=== PATIENT | female | born 1950 | race Caucasian/White ===

== ENCOUNTER 2021-02-10 16:57 | Inpatient (IN) | payer MEDICARE, OTHER ==
[~2021-02-10] VITALS: Ht 172.7 cm; Wt 91.2 kg
[2021-02-10 17:30] VITALS: BP 161/85
[2021-02-10] MEDS ORDERED: BLOOD SUGAR DIAGNOSTIC 1 EACH STRIP IN ONE (17:30)
[2021-02-10] MEDS ORDERED: MAG HYDROX/AL HYDROX/SIMETH 30 ML UDC PO PRN (17:30)
[2021-02-10] MEDS ORDERED: MAGNESIUM HYDROXIDE 30 ML UDC PO PRN (17:30)
--- NOTE | 2021-02-10 17:53 | NUR ---
GPS/RN RECEIVED PT DIRECT ADMIT FROM [facility] ON 515 HOLD FOR DTO( THREATEN TO [employer] EMPL[employer]YE[employer] AT THE [employer]). P T IS AMBULATORY, NO ACUTE DISTRESS NOTED. VSS. PROPERTY CHECKED FOR CONTRABAND. ADMITTING ORDERS FROM DR PARIKH RECEIVED AND CARRIED OUT. DR MARIE MADE AWARE OF ADMISSION.
[2021-02-10] MEDS ORDERED: DEXTROSE 50%-WATER 50 ML DISP.SYRIN IV PRN (18:00)
[2021-02-10] MEDS ORDERED: GLIM4TAB37 MT (18:15)
[2021-02-10] MEDS ORDERED: METO-357 MT (18:15)
[2021-02-10] MEDS ORDERED: LOSA50TA39 MT (18:15)
[2021-02-10] MEDS ORDERED: QUET300T2 (18:15)
[2021-02-10] MEDS ORDERED: DIVA500T54 MT (18:15)
--- NOTE | 2021-02-10 18:50 | NUR ---
FEMALE PT. ALERT AND ORIENTED X2-3 ADM. TO [facility],AT NURSE'S STATION UNIQUE.REFUSES INSULIN,STATES SHE CANNOT TAKE WITH HER CURRENT MEDS.FOOD ORDERED.
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
[2021-02-10 20:39] VITALS: BP 153/80
--- NOTE | 2021-02-10 21:30 | NUR ---
GPS RN NOTE MRSA SPECIMEN COLLECTED AND SENT TO LAB, ALSO ADMITTING BS 237, 6 UNITS REGULAR INSULIN SQ GIVEN ALSO GIVEN HS SNACKS. PT IS MED COMPLIANT.
[2021-02-10] MEDS: TEMAZEPAM 7.5 MG CAPSULE PO PRN (21:40)
--- NOTE | 2021-02-10 21:40 | NUR ---
GPS TRENT NOTE PT C/O INSOMNIA, RESTORIL 15 MG PO GIVEN. CONTINUE TO MONITOR. Addendum: 02/11/21 at 0350 by VALENTIN DOBBS RN ALSO GIVEN MOM 30 ML DUE TO C/O CONSTIPATION.
[2021-02-10] MEDS: BLOOD SUGAR DIAGNOSTIC 1 EACH STRIP VI SCH (21:42)
[2021-02-10] MEDS: INSULIN REGULAR, HUMAN 100 UNIT/ML 3 ML VIAL SQ PRN (21:44)
--- NOTE | 2021-02-10 22:40 | NUR ---
GPS RN NOTE PT FALL ASLEEP.
[2021-02-11] MEDS: ACETAMINOPHEN 325 MG TABLET PO PRN (03:38)
--- NOTE | 2021-02-11 03:40 | NUR ---
GPS RN NOTE PT WOKE UP AND C/O HEADACHE TYLENOL 650 MG PO GIVEN. ALSO STATES "I HAVE NO MORE CONSTIPATION".
[2021-02-11 07:39] LABS: THYROID STIMULATING HORMONE 2.332 uIU/mL (0.358-3.74)
[2021-02-11 08:00] VITALS: BP 154/79
[2021-02-11 08:32] LABS: ALBUMIN 3.1 g/dL (3.4-5.0); BILIRUBIN,TOTAL 0.3 mg/dL (0.2-1.0); CALCIUM, SERUM 8.4 mg/dL (8.5-10.1); CREATININE 0.8 mg/dL (0.6-1.3); TOTAL PROTEIN, SERUM 7.1 g/dL (6.4-8.2)
[2021-02-11] MEDS: INSULIN REGULAR, HUMAN 100 UNIT/ML 3 ML VIAL SQ PRN (08:38)
[2021-02-11] MEDS: BLOOD SUGAR DIAGNOSTIC 1 EACH STRIP VI SCH ×4 (08:41→21:38)
[2021-02-11] MEDS: GLIMEPIRIDE 4 MG TABLET PO SCH (08:42)
[2021-02-11] MEDS: METOPROLOL SUCCINATE 50 MG TAB.SR.24H PO SCH (08:42)
[2021-02-11] MEDS: LOSARTAN POTASSIUM 50 MG TABLET PO SCH (08:43)
[2021-02-11] MEDS: QUETIAPINE FUMARATE 100 MG TABLET PO SCH ×2 (11:43→17:47)
[2021-02-11] MEDS: DIVALPROEX SODIUM 500 MG TABLET.DR PO SCH ×3 (11:43→17:00)
--- NOTE | 2021-02-11 11:51 | NUR ---
GPS/RN IT TOOK MULTIPLE ATTEMPTS TODAY IN AM TO MEDICATE PT WITH INSULIN AND PO MEDS WITH HELP OF CHARGE NURSE CHERI NEWMAN AND JAMES NEWMAN D/T PT BEING PARANOID AND DISORGANIZED. PT REFUSED ACCUCHECK FOR 1200 OFFERED X3.
[2021-02-11] MEDS ORDERED: DIVALPROEX SODIUM 500 MG TABLET.DR PO SCH (13:00)
[2021-02-11 16:00] VITALS: BP 129/77
--- NOTE | 2021-02-11 17:52 | NUR ---
GPD/RN PT REFUSED ACCUCHECK AND REFUSED TO TAKE DEPAKOTE. TOOK SEROQUEL SCHEDULED FOR 1700
[2021-02-11 20:00] VITALS: BP 123/80
--- NOTE | 2021-02-11 21:39 | NUR ---
GPS RN NOTES: BS 144MG/DL. PATIENT REFUSED 2U REGULAR INSULIN PER SLIDING SCALE ORDER. WILL CONTINUE TO MONITOR.
[2021-02-11] MEDS: TEMAZEPAM 7.5 MG CAPSULE PO PRN (22:58)
--- NOTE | 2021-02-11 23:00 | NUR ---
GPS RN NOTES: PATIENT REQUESTED SLEEP MEDICATION D/T INSOMNIA. RESTORIL 15MG GIVEN PO AT 2258. WILL CONTINUE TO MONITOR.
[2021-02-12 08:00] VITALS: BP 156/92
[2021-02-12] MEDS: BLOOD SUGAR DIAGNOSTIC 1 EACH STRIP VI SCH ×4 (08:35→21:31)
[2021-02-12] MEDS: GLIMEPIRIDE 4 MG TABLET PO SCH (08:37)
[2021-02-12] MEDS: METOPROLOL SUCCINATE 50 MG TAB.SR.24H PO SCH (08:38)
[2021-02-12] MEDS: QUETIAPINE FUMARATE 100 MG TABLET PO SCH ×2 (08:38→16:12)
[2021-02-12] MEDS: LOSARTAN POTASSIUM 50 MG TABLET PO SCH (08:38)
[2021-02-12] MEDS: clonazePAM 0.5 MG TABLET PO PRN (08:39)
[2021-02-12] MEDS: DIVALPROEX SODIUM 500 MG TABLET.DR PO SCH ×3 (08:39→16:12)
--- NOTE | 2021-02-12 08:42 | NUR ---
RN NOTES BS 307 MG/DL. JUST HAD BREAKFAST.PATIENT REFUSED INSULIN AND DEPAKOTE. STATED "IT DESTROYS YOUR LIVER"
--- NOTE | 2021-02-12 12:12 | NUR ---
RN NOTES BS 223 MG/DL. PATIENT REFUSED INSULIN AND DEPAKOTE. DESPITE EXPLAINING RISKS AND BENEFITS
--- NOTE | 2021-02-12 15:17 | NUR ---
AMRITA Initial Discharge Plan: Patient currently resides with daughter Dolores ([phone]) and stated she would want to go to a SNF. SW will find pt a SNF. SW contacted pt's daughter Dolores ([phone]) to discuss treatment and discharge plan and stated it is up to her mother if she wants to go to a SNF. SW will coordinate with discharge and find appropriate placement.
--- NOTE | 2021-02-12 15:17 | NUR ---
SW Family Contact: SW contacted pt's daughter Dolores ([phone]) to discuss treatment and discharge plan and stated it is up to her mother if she wants to go to a SNF. S
[2021-02-12 16:00] VITALS: BP_SYST 132; BP_SYST 143; BP_DIAS 72; BP_DIAS 75
--- NOTE | 2021-02-12 16:12 | NUR ---
RN NOTE: MEDICATION REFUSAL PT REFUSED 1700 DEPAKOTE. STATES, " I DON'T TAKE DEPAKOTE". ATTEMPTED TO EDUCATE PT RE IMPORTANCE OF MEDICATION COMPLIANCE. PT CONT'D TO REFUSE X 3. WILL CONT TO MONITOR
[2021-02-12 19:55] VITALS: BP 132/61
--- NOTE | 2021-02-12 20:05 | NUR ---
NURSES NOTES: RECEIVED PATIENT IN HER ROOM AWAKE, NO SIGNS OF ANY DISTRESS, RESPIRATION UNLABORED. WILL MONITOR FOR SAFETY AND BEHAVIOR.
[2021-02-12] MEDS: SIMVASTATIN 10 MG TABLET PO SCH (21:03)
[2021-02-12] MEDS: *INSULIN REGULAR(HUMULIN R)HUM 100 UNIT/ML VIAL SQ PRN (21:33)
[2021-02-12] MEDS: TEMAZEPAM 7.5 MG CAPSULE PO PRN (21:34)
[2021-02-13 07:30] LABS: BASOPHILS % (AUTO) 0.3 % (0.0-2.0); EOSINOPHILS % (AUTO) 4.1 % (0.0-6.0); HEMATOCRIT 38 % (33-45); HEMOGLOBIN 12.6 g/dL (11.5-14.8); LYMPHOCYTES # (AUTO) 2.3 K/uL (0.8-4.8); LYMPHOCYTES % (AUTO) 26.2 % (20.0-44.0); MEAN CORPUSCULAR HGB CONC 33 g/dl (31.0-36.0); MEAN CORPUSCULAR VOLUME 87 fL (82-100); MONOCYTES # (AUTO) 0.6 K/uL (0.1-1.30); MONOCYTES % (AUTO) 6.7 % (2.0-12.0); NEUTROPHILS # (AUTO) 5.5 K/uL (1.8-8.9); NEUTROPHILS % (AUTO) 62.7 % (43.0-81.0); PLATELET COUNT (AUTO) 348 K/uL (150-450); WHITE BLOOD COUNT (AUTO) 8.7 K/uL (4.3-11.0)
[2021-02-13] MEDS: BLOOD SUGAR DIAGNOSTIC 1 EACH STRIP VI SCH ×4 (07:31→21:26)
[2021-02-13] MEDS: INSULIN REGULAR, HUMAN 100 UNIT/ML 3 ML VIAL SQ PRN ×2 (07:38→11:15)
[2021-02-13 07:57] LABS: ALBUMIN 3.3 g/dL (3.4-5.0); BILIRUBIN,DIRECT 0.1 mg/dL (0.0-0.2); BILIRUBIN,TOTAL 0.4 mg/dL (0.2-1.0); CALCIUM, SERUM 8.9 mg/dL (8.5-10.1); CREATININE 0.8 mg/dL (0.6-1.3); MAGNESIUM 1.9 mg/dL (1.8-2.4); PHOSPHORUS 3.7 mg/dL (2.5-4.9); POTASSIUM 3.9 mmol/L (3.5-5.1); TOTAL PROTEIN, SERUM 7.4 g/dL (6.4-8.2)
[2021-02-13 08:00] VITALS: BP 160/87
[2021-02-13] MEDS: DIVALPROEX SODIUM 500 MG TABLET.DR PO SCH ×3 (09:09→16:15)
[2021-02-13] MEDS: LOSARTAN POTASSIUM 50 MG TABLET PO SCH (09:09)
[2021-02-13] MEDS: GLIMEPIRIDE 4 MG TABLET PO SCH (09:10)
[2021-02-13] MEDS: QUETIAPINE FUMARATE 100 MG TABLET PO SCH ×2 (09:10→16:15)
[2021-02-13] MEDS: METOPROLOL SUCCINATE 50 MG TAB.SR.24H PO SCH (09:10)
--- NOTE | 2021-02-13 09:41 | NUR ---
SNF Referral: AMRITA faxed clinicals to Sree booth from [facility] ([phone]) for placement option. AMRITA faxed progress notes, H & P, and medication list.
--- NOTE | 2021-02-13 09:42 | NUR ---
SW Note: SW discussed placement option with pt and she stated she would want a SNF near [place]. SW mentioned SNF near [place] called [facility] and pt was agreeable with this option. SW educated that the facility would have to review her packet.
[2021-02-13] MEDS: LINAGLIPTIN 5 MG TABLET PO SCH (11:07)
[2021-02-13 16:00] VITALS: BP 133/75
[2021-02-13 20:00] VITALS: BP 126/64
[2021-02-13] MEDS: SIMVASTATIN 10 MG TABLET PO SCH (21:26)
[2021-02-13] MEDS: *INSULIN REGULAR(HUMULIN R)HUM 100 UNIT/ML VIAL SQ PRN (22:07)
[2021-02-14] MEDS: TEMAZEPAM 7.5 MG CAPSULE PO PRN ×2 (00:25→22:06)
--- NOTE | 2021-02-14 00:25 | NUR ---
RN NOTES: INSOMNIA PT. UNABLE TO SLEEP , RESTORIL 15 MG PO PRN GIVEN, WILL CONTINUE TO MONITOR.
[2021-02-14] MEDS: BLOOD SUGAR DIAGNOSTIC 1 EACH STRIP VI SCH ×4 (07:10→22:09)
[2021-02-14 08:00] VITALS: BP 154/82
[2021-02-14] MEDS: GLIMEPIRIDE 4 MG TABLET PO SCH (08:49)
[2021-02-14] MEDS: QUETIAPINE FUMARATE 100 MG TABLET PO SCH ×2 (08:49→16:34)
[2021-02-14] MEDS: LINAGLIPTIN 5 MG TABLET PO SCH (08:49)
[2021-02-14] MEDS: DIVALPROEX SODIUM 500 MG TABLET.DR PO SCH ×3 (08:49→16:34)
[2021-02-14] MEDS: LOSARTAN POTASSIUM 50 MG TABLET PO SCH (08:50)
[2021-02-14] MEDS: METOPROLOL SUCCINATE 50 MG TAB.SR.24H PO SCH (08:50)
[2021-02-14] MEDS: INSULIN REGULAR, HUMAN 100 UNIT/ML 3 ML VIAL SQ PRN ×2 (09:16→11:22)
--- NOTE | 2021-02-14 10:10 | NUR ---
SNF Contact: SW received a call from Sree booth from [facility] ([phone]) who stated that pt is accepted.
--- NOTE | 2021-02-14 11:12 | NUR ---
WOUND CARE CONSULT: HEALED AREA NOTED TO RT ANTERIOR LOWER LEG AND PEELING SKIN TO FEET WITH DISCOLORATION AND RT HEEL DRY WOUND WITH TENDERNESS, PRESENT ON ADMISSION. DPM CONSULT CALLED TO DR HAMPAPUR. STAUFFER IN AGREEMENT WITH PLAN OF CARE.
--- NOTE | 2021-02-14 11:35 | NUR ---
RN-CO: BLOOD SUGAR BEFORE LUNCH IS 200, 3 UNITS OF REGULAR INSULIN GIVEN.
[2021-02-14] MEDS: clonazePAM 0.5 MG TABLET PO PRN (14:30)
--- NOTE | 2021-02-14 14:30 | NUR ---
RN-CO: KLONOPIN 0.5 MG PO GIVEN FOR AGITATION.
[2021-02-14 16:00] VITALS: BP 127/76
--- NOTE | 2021-02-14 16:43 | NUR ---
RN-CO: BS 124 BEFORE DINNER, NO INSULIN COVERAGE.
--- NOTE | 2021-02-14 19:30 | NUR ---
GPS RN NOTE, RECEIVED PATIENT AWAKE AND IN BED, NO S/S OR COMPLAINTS OF PAIN AT THIS TIME. PATIENT IS DISPLAYING NO S/S OF APPARENT DISTRESS AT THIS TIME. PATIENT BREATHING IS UNLABORED WITH EQUAL RISE AND FALL OF THE CHEST. PATIENT IS ALERT AND ORIENTED X 3 ON ROOM AIR WITH A SPO2 98%. PATIENT IS COMPLIANT WITH MEDICATIONS, ANXIOUS AT TIMES, ARGUMENTATIVE, NEEDS REDIRECTION, AND IS COOPERATIVE. PATIENT DENIES SUICIDAL AND HOMICIDAL IDEATIONS AT TIME. PATIENT EDUCATED ON THE USE OF THE CALL ALVARENGA. PATIENT BED SIDE RAILS UP X 2 FOR SAFETY. PATIENT BED IS LOCKED, LOW, WITH BED ALARM ON. WILL CONTINUE TO MONITOR THIS PATIENT Q15 MINUTES WITH THE HELP OF STAFF TO MAINTAIN SAFETY.
[2021-02-14 20:00] VITALS: BP 119/65
[2021-02-14] MEDS: SIMVASTATIN 10 MG TABLET PO SCH (21:49)
--- NOTE | 2021-02-14 22:07 | NUR ---
GPS RN NOTE, PATIENT HAS A COMPLAINT OF NOT BEING ABLE TO SLEEP AND IS REQUESTING RESTORIL AT THIS TIME. PATIENT VITAL SIGNS ARE STABLE. GAVE RESTORIL 15MG PO HS PRN ORDERED. WILL REASSESS FOR INSOMNIA AND I WILL CONTINUE TO MONITOR THIS PATIENT.
[2021-02-15 08:00] VITALS: BP 123/69
[2021-02-15] MEDS: BLOOD SUGAR DIAGNOSTIC 1 EACH STRIP VI SCH ×4 (08:02→21:29)
[2021-02-15] MEDS: METOPROLOL SUCCINATE 50 MG TAB.SR.24H PO SCH (09:21)
[2021-02-15] MEDS: LINAGLIPTIN 5 MG TABLET PO SCH (09:21)
[2021-02-15] MEDS: QUETIAPINE FUMARATE 100 MG TABLET PO SCH ×2 (09:21→16:34)
[2021-02-15] MEDS: DIVALPROEX SODIUM 500 MG TABLET.DR PO SCH ×4 (09:21→16:34)
[2021-02-15] MEDS: GLIMEPIRIDE 4 MG TABLET PO SCH (09:21)
[2021-02-15] MEDS: LOSARTAN POTASSIUM 50 MG TABLET PO SCH (09:22)
--- NOTE | 2021-02-15 09:30 | NUR ---
RN-NOTES PT. BS WAS 164 MG/DL, REFUSED COVERAGE OF R INSULIN OF 3 UNITS DESPITE EXPLANATIONS RISK AND BENEFITS AND ENCOURAGEMENT. STATED" IT'S NOT THAT HIGH AND I'M NOT IN INSULIN ANYMORE" OFFERED X3 STILL REFUSED.
--- NOTE | 2021-02-15 10:52 | NUR ---
Court Hearing: Patient's court hearing for 8730 was today and it was upheld for GD.
[2021-02-15 16:00] VITALS: BP 133/72
--- NOTE | 2021-02-15 17:06 | NUR ---
RN-NOTES PT. BS WAS 194 MG/DL, REFUSED COVERAGE OF R INSULIN OF 3 UNITS DESPITE EXPLANATIONS RISK AND BENEFITS AND ENCOURAGEMENT. STATED" NO INSULIN". OFFERED X3 STILL REFUSED.NO COMPLAIN OF ANY DISCOMFORT AT THIS TIME.
[2021-02-15 20:00] VITALS: BP 123/54
[2021-02-15] MEDS: SIMVASTATIN 10 MG TABLET PO SCH (21:06)
[2021-02-15] MEDS: TEMAZEPAM 7.5 MG CAPSULE PO PRN (21:06)
--- NOTE | 2021-02-15 21:06 | NUR ---
GPS-RN NOTES: INSOMNIA PATIENT C/O INABILITY TO SLEEP. PRN RESTORIL 15MG PO GIVEN. WILL CONTINUE TO MONITOR.
--- NOTE | 2021-02-15 21:29 | NUR ---
GPS RN-NOTES: PATIENT BLOOD SUGAR WAS 137MG/DL WITH 2 UNITS OF REGULAR INSULIN COVERAGE BUT PATIENT REFUSED. DESPITE OF EDUCATION PROVIDED PATIENT CONTINUED TO REFUSE X3. PATIENT STATED "NO INSULIN". WILL CONTINUE TO MONITOR.
[2021-02-15] MEDS: *INSULIN REGULAR(HUMULIN R)HUM 100 UNIT/ML VIAL SQ PRN (21:30)
--- NOTE | 2021-02-16 07:30 | NUR ---
RN-NOTES PT. BS WAS 163 MG/DL, REFUSED COVERAGE OF R INSULIN OF 3 UNITS DESPITE EXPLANATIONS RISK AND BENEFITS AND ENCOURAGEMENT. STATED" IT'S NOT HIGH AND I'M NOT IN INSULIN ANYMORE" OFFERED X3 .
[2021-02-16] MEDS: BLOOD SUGAR DIAGNOSTIC 1 EACH STRIP VI SCH ×4 (07:43→21:16)
[2021-02-16 08:00] VITALS: BP 155/87
[2021-02-16] MEDS: DIVALPROEX SODIUM 500 MG TABLET.DR PO SCH ×3 (08:30→17:12)
[2021-02-16] MEDS: LINAGLIPTIN 5 MG TABLET PO SCH (08:30)
[2021-02-16] MEDS: LOSARTAN POTASSIUM 50 MG TABLET PO SCH (08:30)
[2021-02-16] MEDS: METOPROLOL SUCCINATE 50 MG TAB.SR.24H PO SCH (08:30)
[2021-02-16] MEDS: QUETIAPINE FUMARATE 100 MG TABLET PO SCH ×2 (08:30→17:12)
[2021-02-16] MEDS: GLIMEPIRIDE 4 MG TABLET PO SCH (08:30)
--- NOTE | 2021-02-16 12:30 | NUR ---
RN-NOTES PT. BS WAS 155 MG/DL, REFUSED COVERAGE OF R INSULIN OF 2 UNITS DESPITE EXPLANATIONS RISK AND BENEFITS . OFFERED X3 .
--- NOTE | 2021-02-16 13:50 | NUR ---
Individual Therapy: SW met with patient to conduct brief therapy on patient's presenting problem for disorganized thought content. Patient appears paranoid and delusional. Patient is fixated on her daughter and states that her daughter is depressed. SW actively listened and provided support.
[2021-02-16 16:00] VITALS: BP 110/65
--- NOTE | 2021-02-16 17:45 | NUR ---
RN-NOTES PT. BS WAS 171 MG/DL, REFUSED COVERAGE OF R INSULIN OF 3 UNITS . OFFERED X3
[2021-02-16 20:06] VITALS: BP 126/62
[2021-02-16] MEDS: *INSULIN REGULAR(HUMULIN R)HUM 100 UNIT/ML VIAL SQ PRN (21:16)
[2021-02-16] MEDS: SIMVASTATIN 10 MG TABLET PO SCH (21:18)
[2021-02-16] MEDS: clonazePAM 0.5 MG TABLET PO PRN (21:41)
--- NOTE | 2021-02-16 21:43 | NUR ---
RN NOTES: ANXIETY PT. NOTED VERY ANXIOUS ,PACING IN HALLWAY , PARANOID HYPERVERBAL , NEEDY DEMENDING, NON REDICTABLE, KLNOPIN 0.5 MG PO PRN GIVEN , WILL CONTINUE TO MONITOR.
[2021-02-17] MEDS: clonazePAM 0.5 MG TABLET PO PRN ×2 (02:27→20:31)
--- NOTE | 2021-02-17 02:27 | NUR ---
RN NOTES: ANXIETY PT. C/O VERY ANXIOUS ,PACING IN HALLWAY , PARANOID HYPERVERBAL , NEEDY DEMENDING, NON REDICTABLE, KLNOPIN 0.5 MG PO PRN GIVEN , WILL CONTINUE TO MONITOR.
--- NOTE | 2021-02-17 05:46 | NUR ---
RN NOTES: PT. REFUSED AM LABS , ENCOURAGED X3 , RISKS AND BENEFITS EXPLINED , PT. BEHAVIOR UNCOOPERTIVE ,EASILY AGITATED, PER LAB WILL TRYING LATER AGAIN.
[2021-02-17] MEDS: BLOOD SUGAR DIAGNOSTIC 1 EACH STRIP VI SCH ×4 (06:54→21:34)
[2021-02-17 08:00] VITALS: BP 155/73
[2021-02-17] MEDS: GLIMEPIRIDE 4 MG TABLET PO SCH (08:14)
[2021-02-17] MEDS: DIVALPROEX SODIUM 500 MG TABLET.DR PO SCH ×3 (08:14→16:51)
[2021-02-17] MEDS: METOPROLOL SUCCINATE 50 MG TAB.SR.24H PO SCH (08:14)
[2021-02-17] MEDS: QUETIAPINE FUMARATE 100 MG TABLET PO SCH (08:14)
[2021-02-17] MEDS: LINAGLIPTIN 5 MG TABLET PO SCH (08:14)
[2021-02-17] MEDS: LOSARTAN POTASSIUM 50 MG TABLET PO SCH (08:14)
--- NOTE | 2021-02-17 09:22 | NUR ---
RN-NOTES PT. BS WAS 148 MG/DL, REFUSED 2 UNITS COVERAGE OF REGULAR INSULIN . OFFERED X3. CAR MARTINEZ MADE AWARE OF PATIENT DAILY REFUSAL OF INSULIN COVERAGE .
[2021-02-17 12:08] LABS: BASOPHILS % (AUTO) 0.3 % (0.0-2.0); EOSINOPHILS % (AUTO) 1.8 % (0.0-6.0); HEMATOCRIT 38 % (33-45); HEMOGLOBIN 12.3 g/dL (11.5-14.8); LYMPHOCYTES # (AUTO) 2.1 K/uL (0.8-4.8); LYMPHOCYTES % (AUTO) 25.8 % (20.0-44.0); MEAN CORPUSCULAR HGB CONC 32 g/dl (31.0-36.0); MEAN CORPUSCULAR VOLUME 88 fL (82-100); MONOCYTES # (AUTO) 0.5 K/uL (0.1-1.30); MONOCYTES % (AUTO) 6.3 % (2.0-12.0); NEUTROPHILS # (AUTO) 5.5 K/uL (1.8-8.9); NEUTROPHILS % (AUTO) 65.8 % (43.0-81.0); PLATELET COUNT (AUTO) 300 K/uL (150-450); RED BLOOD CELL COUNT(AUTO) 4.31 MIL/uL (4.0-5.2); WHITE BLOOD COUNT (AUTO) 8.3 K/uL (4.3-11.0)
[2021-02-17 12:23] LABS: ALBUMIN 3.2 g/dL (3.4-5.0); BILIRUBIN,TOTAL 0.3 mg/dL (0.2-1.0); CALCIUM, SERUM 8.4 mg/dL (8.5-10.1); CREATININE 0.8 mg/dL (0.6-1.3); POTASSIUM 3.8 mmol/L (3.5-5.1); TOTAL PROTEIN, SERUM 7.1 g/dL (6.4-8.2)
[2021-02-17 16:00] VITALS: BP 125/79
[2021-02-17] MEDS: QUETIAPINE FUMARATE 25 MG TABLET PO SCH (16:53)
[2021-02-17 19:58] VITALS: BP 143/66
[2021-02-17] MEDS: *INSULIN REGULAR(HUMULIN R)HUM 100 UNIT/ML VIAL SQ PRN (21:29)
[2021-02-17] MEDS: SIMVASTATIN 10 MG TABLET PO SCH (21:34)
[2021-02-17] MEDS ORDERED: QUETIAPINE FUMARATE 100 MG TABLET PO SCH (22:00)
[2021-02-18] MEDS: BLOOD SUGAR DIAGNOSTIC 1 EACH STRIP VI SCH ×4 (07:30→21:09)
[2021-02-18 08:00] VITALS: BP 141/71
[2021-02-18] MEDS: DIVALPROEX SODIUM 500 MG TABLET.DR PO SCH ×3 (08:06→16:33)
[2021-02-18] MEDS: QUETIAPINE FUMARATE 25 MG TABLET PO SCH (08:06)
[2021-02-18] MEDS: GLIMEPIRIDE 4 MG TABLET PO SCH (08:06)
[2021-02-18] MEDS: LINAGLIPTIN 5 MG TABLET PO SCH (08:06)
[2021-02-18] MEDS: METOPROLOL SUCCINATE 50 MG TAB.SR.24H PO SCH (08:07)
[2021-02-18] MEDS: LOSARTAN POTASSIUM 50 MG TABLET PO SCH (08:07)
[2021-02-18] MEDS: INSULIN REGULAR, HUMAN 100 UNIT/ML 3 ML VIAL SQ PRN ×2 (11:59→21:10)
[2021-02-18] MEDS: clonazePAM 0.5 MG TABLET PO PRN ×2 (14:54→21:04)
--- NOTE | 2021-02-18 14:54 | NUR ---
RN-CO: KLONOPIN GIVEN FOR RESTLESSNESS.
[2021-02-18 16:00] VITALS: BP 152/84
[2021-02-18 20:00] VITALS: BP 130/68
--- NOTE | 2021-02-18 21:12 | NUR ---
Pt hyperverbal and singing loudly in hallway and room. Refuses to stop yelling and singing loudly. Least restrictive measures ineffective. Klonopin 0.5 mg 1 tab po prn given as ordered. Will continue to monitor.
[2021-02-18] MEDS: SIMVASTATIN 10 MG TABLET PO SCH (22:04)
[2021-02-18] MEDS: QUETIAPINE FUMARATE 100 MG TABLET PO SCH (22:05)
--- NOTE | 2021-02-18 22:12 | NUR ---
Post 1 hr Klonopin effective. Pt in room calm and no longer yelling or singing loud. Will continue to monitor.
[2021-02-18] MEDS: TEMAZEPAM 7.5 MG CAPSULE PO PRN (22:43)
--- NOTE | 2021-02-18 22:43 | NUR ---
Pt c/o insomnia. Least restrictive measures ineffective. Restoril 15 mg po prn given as ordered. Will continue to monitor.
--- NOTE | 2021-02-18 23:51 | NUR ---
Post 1 hr Restoril effective. Pt asleep in bed easy to arouse. Frequent visual check done for safety. Will continue to monitor.
[2021-02-19] MEDS: BLOOD SUGAR DIAGNOSTIC 1 EACH STRIP VI SCH ×4 (06:50→22:02)
--- NOTE | 2021-02-19 07:46 | NUR ---
RN-CO: PT REFUSED INSULIN COVERAGE OF 3 UNITS, PT STATED : NO I AM SLEEPY."
[2021-02-19 08:00] VITALS: BP 128/70
[2021-02-19] MEDS: DIVALPROEX SODIUM 500 MG TABLET.DR PO SCH ×3 (08:49→16:22)
[2021-02-19] MEDS: QUETIAPINE FUMARATE 25 MG TABLET PO SCH (08:49)
[2021-02-19] MEDS: LINAGLIPTIN 5 MG TABLET PO SCH (08:49)
[2021-02-19] MEDS: LOSARTAN POTASSIUM 50 MG TABLET PO SCH (08:49)
[2021-02-19] MEDS: GLIMEPIRIDE 4 MG TABLET PO SCH (08:49)
[2021-02-19] MEDS: METOPROLOL SUCCINATE 50 MG TAB.SR.24H PO SCH (08:50)
[2021-02-19] MEDS: INSULIN REGULAR, HUMAN 100 UNIT/ML 3 ML VIAL SQ PRN ×2 (11:32→16:41)
--- NOTE | 2021-02-19 15:40 | NUR ---
AMRITA Family Contact: SW spoke with patient's daughter Dolores ([phone]) and she stated pt can come back home when ready.
[2021-02-19 16:00] VITALS: BP 138/78
[2021-02-19 20:15] VITALS: BP 117/71
[2021-02-19] MEDS: *INSULIN REGULAR(HUMULIN R)HUM 100 UNIT/ML VIAL SQ PRN (21:42)
[2021-02-19] MEDS: SIMVASTATIN 10 MG TABLET PO SCH (21:43)
[2021-02-19] MEDS: QUETIAPINE FUMARATE 100 MG TABLET PO SCH (21:43)
[2021-02-19] MEDS: TEMAZEPAM 7.5 MG CAPSULE PO PRN (21:44)
[2021-02-20] MEDS: BLOOD SUGAR DIAGNOSTIC 1 EACH STRIP VI SCH ×4 (07:29→21:24)
[2021-02-20] MEDS: INSULIN REGULAR, HUMAN 100 UNIT/ML 3 ML VIAL SQ PRN ×2 (07:34→12:01)
[2021-02-20] MEDS: QUETIAPINE FUMARATE 25 MG TABLET PO SCH (07:38)
[2021-02-20 08:00] VITALS: BP 119/87
[2021-02-20] MEDS: LINAGLIPTIN 5 MG TABLET PO SCH (08:55)
[2021-02-20] MEDS: GLIMEPIRIDE 4 MG TABLET PO SCH (08:55)
[2021-02-20] MEDS: DIVALPROEX SODIUM 500 MG TABLET.DR PO SCH ×3 (08:55→17:01)
[2021-02-20] MEDS: LOSARTAN POTASSIUM 50 MG TABLET PO SCH (08:56)
[2021-02-20] MEDS: METOPROLOL SUCCINATE 50 MG TAB.SR.24H PO SCH (08:56)
--- NOTE | 2021-02-20 13:30 | NUR ---
AMRITA Family Contact: AMRITA contacted pt's daughter Dolores ([phone]) to confirm address and transportation, however, she was unavailable and mailbox was full. AMRITA unable to leave a voicemail.
--- NOTE | 2021-02-20 14:45 | NUR ---
AMRITA Family Contact: AMRITA spoke with patient's daughter Dolores ([phone]) who stated that she will arrange Uber on 02/22 at 1PM for tow picker.
[2021-02-20 16:00] VITALS: BP 150/84
[2021-02-20 20:57] VITALS: BP 148/104
[2021-02-20] MEDS: *INSULIN REGULAR(HUMULIN R)HUM 100 UNIT/ML VIAL SQ PRN (21:23)
--- NOTE | 2021-02-20 21:25 | NUR ---
GPS RN NOTES: BS 249MG/DL. 4U REGULAR INSULIN ADMINISTERED PER SLIDING SCALE. WILL CONTINUE TO MONITOR.
[2021-02-20] MEDS: QUETIAPINE FUMARATE 100 MG TABLET PO SCH (21:38)
[2021-02-20] MEDS: SIMVASTATIN 10 MG TABLET PO SCH (21:38)
--- NOTE | 2021-02-20 21:45 | NUR ---
GPS RN NOTES: SEROQUEL 50MG WASTED PER MD ORDER.
[2021-02-21] MEDS: ACETAMINOPHEN 325 MG TABLET PO PRN ×2 (02:23→22:00)
--- NOTE | 2021-02-21 02:25 | NUR ---
GPS RN NOTES: PATIENT C/O FOOT PAIN. TYLENOL 650MG GIVEN PO AT 0223. WILL CONTINUE TO MONITOR.
[2021-02-21] MEDS: BLOOD SUGAR DIAGNOSTIC 1 EACH STRIP VI SCH ×4 (07:34→22:07)
[2021-02-21] MEDS: INSULIN REGULAR, HUMAN 100 UNIT/ML 3 ML VIAL SQ PRN ×3 (07:40→17:07)
[2021-02-21 08:00] VITALS: BP 136/81
[2021-02-21] MEDS: GLIMEPIRIDE 4 MG TABLET PO SCH (08:31)
[2021-02-21] MEDS: DIVALPROEX SODIUM 500 MG TABLET.DR PO SCH ×3 (08:31→17:14)
[2021-02-21] MEDS: METOPROLOL SUCCINATE 50 MG TAB.SR.24H PO SCH (08:31)
[2021-02-21] MEDS: QUETIAPINE FUMARATE 25 MG TABLET PO SCH (08:31)
[2021-02-21] MEDS: LINAGLIPTIN 5 MG TABLET PO SCH (08:32)
[2021-02-21] MEDS: LOSARTAN POTASSIUM 50 MG TABLET PO SCH (08:32)
--- NOTE | 2021-02-21 09:29 | NUR ---
AMRITA Family Contact: SW left a voicemail for patient's daughter Dolores ([phone]) and stated taxi transportation will be provided.
[2021-02-21 16:00] VITALS: BP 128/67
[2021-02-21 20:00] VITALS: BP 149/73
[2021-02-21] MEDS: SIMVASTATIN 10 MG TABLET PO SCH (21:57)
[2021-02-21] MEDS: QUETIAPINE FUMARATE 100 MG TABLET PO SCH (21:57)
--- NOTE | 2021-02-21 22:06 | NUR ---
GPS RN NOTES: SEROQUEL 50MG PARTIAL DOSE WASTED PER MD ORDER.
[2021-02-21] MEDS: *INSULIN REGULAR(HUMULIN R)HUM 100 UNIT/ML VIAL SQ PRN (22:17)
[2021-02-21] MEDS: TEMAZEPAM 7.5 MG CAPSULE PO PRN (22:30)
--- NOTE | 2021-02-21 22:31 | NUR ---
GPS RN NOTES: PATIENT REQUESTED FOR SLEEP MED. RESTORIL 7.5MG GIVEN PO AT 2230. WILL CONTINUE TO MONITOR.
[2021-02-22] MEDS: BLOOD SUGAR DIAGNOSTIC 1 EACH STRIP VI SCH ×2 (07:35→12:02)
[2021-02-22] MEDS: INSULIN REGULAR, HUMAN 100 UNIT/ML 3 ML VIAL SQ PRN ×2 (07:45→12:04)
[2021-02-22 08:00] VITALS: BP 135/84
--- NOTE | 2021-02-22 08:16 | NUR ---
SW Discharge Note: [place] [address] [address]; ([phone]). Please arrange taxi transportation at 1PM. Patients daughter Dolores ([phone]) is aware and agreeable with discharge. Patient appears to be happy to be returning back home. Patient appears to be alert and oriented x3. Patient denies suicidal or homicidal ideation. Patient denies visual/auditory hallucinations. Patient will follow up with (Die Engraver) Dr. Jang located at [address] [place] [address]; ([phone]) on February 23 at 11:15AM and will provide and monitor patients psychotropic medications. Patient presents with euthymic mood and congruent affect.
[2021-02-22] MEDS: QUETIAPINE FUMARATE 25 MG TABLET PO SCH (08:31)
[2021-02-22] MEDS: GLIMEPIRIDE 4 MG TABLET PO SCH (08:31)
[2021-02-22] MEDS: LOSARTAN POTASSIUM 50 MG TABLET PO SCH (08:31)
[2021-02-22 08:32] VITALS: BP 135/84
[2021-02-22] MEDS: LINAGLIPTIN 5 MG TABLET PO SCH (08:32)
[2021-02-22] MEDS: DIVALPROEX SODIUM 500 MG TABLET.DR PO SCH ×2 (08:32→12:04)
[2021-02-22] MEDS: METOPROLOL SUCCINATE 50 MG TAB.SR.24H PO SCH (08:32)
[2021-02-22] MEDS ORDERED: LINA5TAB PO (10:52)
[2021-02-22] MEDS ORDERED: SIMV10TA98 PO (10:52)
--- NOTE | 2021-02-22 14:25 | NUR ---
Patient has been discharged [place] [address] [address]; ([phone]). via taxi transportation at 1425PM. Patient appears to be happy to be returning back home. Patient appears to be alert and oriented x3. Patient denies suicidal or homicidal ideation. Medications reviewed and prescriptions given. Discussed after care. Given copy of after care and exit care. All belongings returned. Wound/skin pictures taken. Patient denies visual/auditory hallucinations. Patient will follow up with (Data Entry Representative) Dr. Jang located at [address] [place] [address]; ([phone]) on February 23 at 11:15AM and will provide and monitor patients psychotropic medications. Pt escorted to main lobby and taxi by staff.
== END 2021-02-22 14:25 | disposition home or self-care (01) | DRG 885 ==
LOC: GPS 16:57
PROVIDERS: ADMIT Psychiatry & Neurology Psychiatry; ATTEND Student in an Organized Health Care Education/Training Program
DX: F25.0 Schizoaffective disorder, bipolar type (principal); E11.65 Type 2 diabetes mellitus with hyperglycemia; E44.1 Mild protein-calorie malnutrition; L97.419 Non-pressure chronic ulcer of right heel and midfoot with unspecified severity; I10 Essential (primary) hypertension; E11.40 Type 2 diabetes mellitus with diabetic neuropathy, unspecified; E78.5 Hyperlipidemia, unspecified; M20.41 Other hammer toe(s) (acquired), right foot; M20.42 Other hammer toe(s) (acquired), left foot; Z91.19 Patient's noncompliance with other medical treatment and regimen; Z68.30 Body mass index [BMI] 30.0-30.9, adult; E11.621 Type 2 diabetes mellitus with foot ulcer
CPT/HCPCS: 36415; 80048-TC; 80053-TC; 80061-TC; 80076-TC; 80164-TC; 82962-TC; 83735-TC; 84100-TC; 84443-TC; 85025-TC; 87081-TC; J1815

== ENCOUNTER 2021-05-22 00:46 | Inpatient (IN) | payer MEDICARE, OTHER ==
[~2021-05-22] VITALS: Ht 167.6 cm; Wt 76.7 kg
[~2021-05-22 00:46] MED LIST: GLIM4TAB37 MT; LINA5TAB PO; LOSA50TA39 MT; METO-357 MT; SIMV10TA98 PO
[2021-05-22] MEDS ORDERED: TEMAZEPAM 7.5 MG CAPSULE PO PRN (02:00)
[2021-05-22] MEDS ORDERED: ACETAMINOPHEN 325 MG TABLET PO PRN (02:00)
[2021-05-22] MEDS ORDERED: MAG HYDROX/AL HYDROX/SIMETH 30 ML UDC PO PRN (02:00)
[2021-05-22] MEDS ORDERED: BLOOD SUGAR DIAGNOSTIC 1 EACH STRIP IN ONE (02:00)
[2021-05-22] MEDS ORDERED: clonazePAM 0.5 MG TABLET PO PRN (02:00)
[2021-05-22] MEDS ORDERED: MAGNESIUM HYDROXIDE 30 ML UDC PO PRN (02:00)
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
[2021-05-22] MEDS ORDERED: QUET200T PO (02:55)
[2021-05-22] MEDS ORDERED: GLIP5TAB13 PO (02:55)
[2021-05-22] MEDS ORDERED: DULA1.5P SQ (02:55)
[2021-05-22] MEDS ORDERED: CLOT15CR5 TP (02:55)
[2021-05-22] MEDS ORDERED: METF-442 PO (02:55)
--- NOTE | 2021-05-22 07:23 | NUR ---
GPS RN NOTE: PER MERCHANDISE FLOW TEAM LEADER ORDER - INPUT BENADRYL 50 MG.
[2021-05-22] MEDS ORDERED: diphenhydrAMINE HCL 50 MG CAPSULE PO PRN (07:30)
[2021-05-22] MEDS ORDERED: diphenhydrAMINE HCL 50 MG CAPSULE PO ONE (07:30)
[2021-05-22 08:00] VITALS: BP 154/94
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
[2021-05-22] MEDS ORDERED: CLOTRIMAZOLE/BETAMETASONE DIPROPIONATE 15 GM TUBE TP SCH (12:30)
[2021-05-22] MEDS: PIOGLITAZONE HCL 15 MG TABLET PO SCH (13:39)
--- NOTE | 2021-05-22 14:20 | NUR ---
AMRITA SNF Referral: AMRITA sent clinicals to [facility] from admission [phone] for placement at [facility]. AMRITA sent H & P, progress notes, and medication list.
[2021-05-22 16:07] VITALS: BP 156/86
[2021-05-22] MEDS: QUETIAPINE FUMARATE 100 MG TABLET PO SCH (21:12)
[2021-05-22] MEDS: SIMVASTATIN 10 MG TABLET PO SCH (21:13)
--- NOTE | 2021-05-22 21:16 | NUR ---
RN NOTE URINE SPECIMEN PICKED UP BY THE FIELD ARTILLERY OFFICER.
[2021-05-22 21:33] LABS: BILIRUBIN,URINE NEGATIVE (NEGATIVE); COLOR,URINE YELLOW (YELLOW); LEUKOCYTE ESTERASE ,URINE NEGATIVE (NEGATIVE); NITRITE, URINE NEGATIVE (NEGATIVE); PROTEIN,URINE NEGATIVE (NEGATIVE); UGLUCOSE NEGATIVE (NEGATIVE); UROBILINOGEN,URINE 0.2 EU/dL (0.2)
[2021-05-23 08:00] VITALS: BP 135/84
[2021-05-23] MEDS: PIOGLITAZONE HCL 15 MG TABLET PO SCH (08:10)
[2021-05-23] MEDS: LOSARTAN POTASSIUM 50 MG TABLET PO SCH (08:11)
[2021-05-23] MEDS: METOPROLOL SUCCINATE 50 MG TAB.SR.24H PO SCH (08:11)
[2021-05-23 08:44] LABS: BASOPHILS % (AUTO) 0.6 % (0.0-2.0); EOSINOPHILS % (AUTO) 2.8 % (0.0-6.0); HEMATOCRIT 38 % (33-45); HEMOGLOBIN 12.5 g/dL (11.5-14.8); LYMPHOCYTES # (AUTO) 1.8 K/uL (0.8-4.8); LYMPHOCYTES % (AUTO) 23.4 % (20.0-44.0); MEAN CORPUSCULAR HGB CONC 33 g/dl (31.0-36.0); MEAN CORPUSCULAR VOLUME 86 fL (82-100); MONOCYTES # (AUTO) 0.6 K/uL (0.1-1.30); MONOCYTES % (AUTO) 8.2 % (2.0-12.0); NEUTROPHILS # (AUTO) 5.1 K/uL (1.8-8.9); PLATELET COUNT (AUTO) 365 K/uL (150-450); RED BLOOD CELL COUNT(AUTO) 4.48 MIL/uL (4.0-5.2); WHITE BLOOD COUNT (AUTO) 7.8 K/uL (4.3-11.0)
[2021-05-23 09:33] LABS: ALBUMIN 3.1 g/dL (3.4-5.0); BILIRUBIN,TOTAL 0.4 mg/dL (0.2-1.0); CALCIUM, SERUM 8.6 mg/dL (8.5-10.1); CREATININE 0.8 mg/dL (0.6-1.3); POTASSIUM 4.5 mmol/L (3.5-5.1); TOTAL PROTEIN, SERUM 7.6 g/dL (6.4-8.2)
[2021-05-23 16:00] VITALS: BP 144/93
[2021-05-23 20:00] VITALS: BP 124/63
[2021-05-23 20:01] VITALS: BP 124/63
[2021-05-23] MEDS: QUETIAPINE FUMARATE 100 MG TABLET PO SCH (21:30)
[2021-05-23] MEDS: SIMVASTATIN 10 MG TABLET PO SCH (21:30)
--- NOTE | 2021-05-23 22:48 | NUR ---
RN NOTE PATIENT'S HGBA1C RESULTED 10.3 %, PATIENT HAS HX OF DM, INFORMED RAZIA COURTNEY NP AND RECEIVED NEW ORDER OF ACCU CHECK ACHS AND MILD SLIDING SCALE ACHS. ORDER NOTED AND CARRIED OUT.
[2021-05-23] MEDS ORDERED: DEXTROSE 50%-WATER 50 ML DISP.SYRIN IV PRN (23:00)
[2021-05-24] MEDS ORDERED: BLOOD SUGAR DIAGNOSTIC 1 EACH STRIP VI SCH (07:30)
[2021-05-24] MEDS: BLOOD SUGAR DIAGNOSTIC 1 EACH STRIP IN SCH ×4 (07:39→21:10)
[2021-05-24 08:00] VITALS: BP 124/70
[2021-05-24] MEDS: INSULIN REGULAR, HUMAN 100 UNIT/ML 3 ML VIAL SQ PRN ×4 (08:11→21:11)
[2021-05-24] MEDS: METOPROLOL SUCCINATE 50 MG TAB.SR.24H PO SCH (08:21)
[2021-05-24] MEDS: LOSARTAN POTASSIUM 50 MG TABLET PO SCH (08:21)
[2021-05-24] MEDS: PIOGLITAZONE HCL 15 MG TABLET PO SCH (08:21)
--- NOTE | 2021-05-24 10:03 | NUR ---
AMRITA SNF Referral: AMRITA sent clinicals to [facility] ([phone]) for placement option at [facility] or [facility]. AMRITA sent H & P notes, progress notes, and medication list.
--- NOTE | 2021-05-24 11:55 | NUR ---
BS is 178, pt. refused for 3 units of Humulin R. offered 3xs and explained on the importance and still refusing said she took Actos po already. Will continue to monitor.
[2021-05-24 16:00] VITALS: BP 125/83
[2021-05-24 20:00] VITALS: BP 148/74
[2021-05-24] MEDS: QUETIAPINE FUMARATE 100 MG TABLET PO SCH (21:10)
[2021-05-24] MEDS: SIMVASTATIN 10 MG TABLET PO SCH (21:10)
[2021-05-24] MEDS ORDERED: GUAIFENESIN/D-METHORPHAN HB 5 ML UDC PO PRN (21:30)
[2021-05-25] MEDS: BLOOD SUGAR DIAGNOSTIC 1 EACH STRIP IN SCH ×4 (07:34→21:16)
[2021-05-25 08:00] VITALS: BP 149/90
--- NOTE | 2021-05-25 08:00 | NUR ---
RN-NOTES PATIENT BS BEFORE BREAKFAST WAS 198MG/DL, 3 UNITS OF INSULIN COVERAGE. EXPLAINED RISK AND BENEFITS BUT STATED" IT'S FINE NOT THAT HIGH". OFFERED X3
[2021-05-25] MEDS: LOSARTAN POTASSIUM 50 MG TABLET PO SCH (08:18)
[2021-05-25] MEDS: METOPROLOL SUCCINATE 50 MG TAB.SR.24H PO SCH (08:18)
[2021-05-25] MEDS: PIOGLITAZONE HCL 15 MG TABLET PO SCH (08:18)
[2021-05-25] MEDS: INSULIN REGULAR, HUMAN 100 UNIT/ML 3 ML VIAL SQ PRN ×3 (12:20→21:21)
[2021-05-25 16:00] VITALS: BP 121/58
--- NOTE | 2021-05-25 19:53 | NUR ---
Patient is A&Ox3. walking around unit, trying to look into cabinets and doors. Redirected pt. and teaching that she can ask staff for any needs. Denies needs at this time. Calm and cooperative. Continue with q15min checks for safety and behavior.
[2021-05-25 20:00] VITALS: BP 124/70
[2021-05-25] MEDS: SIMVASTATIN 10 MG TABLET PO SCH (21:08)
[2021-05-25] MEDS: QUETIAPINE FUMARATE 100 MG TABLET PO SCH (21:08)
[2021-05-26] MEDS: BLOOD SUGAR DIAGNOSTIC 1 EACH STRIP IN SCH ×4 (07:49→21:50)
[2021-05-26] MEDS: INSULIN REGULAR, HUMAN 100 UNIT/ML 3 ML VIAL SQ PRN ×4 (07:58→21:36)
[2021-05-26 08:00] VITALS: BP 129/69
[2021-05-26] MEDS: LOSARTAN POTASSIUM 50 MG TABLET PO SCH (08:03)
[2021-05-26] MEDS: METOPROLOL SUCCINATE 50 MG TAB.SR.24H PO SCH (08:03)
[2021-05-26] MEDS: PIOGLITAZONE HCL 15 MG TABLET PO SCH (08:03)
[2021-05-26] MEDS ORDERED: DEXTROSE 50%-WATER 50 ML DISP.SYRIN IV PRN ×2 (12:30→13:00)
[2021-05-26] MEDS ORDERED: INSULIN REGULAR, HUMAN 100 UNIT/ML 3 ML VIAL SQ PRN (12:30)
[2021-05-26 16:00] VITALS: BP 117/71
[2021-05-26] MEDS ORDERED: BLOOD SUGAR DIAGNOSTIC 1 EACH STRIP IN SCH (17:30)
[2021-05-26 20:00] VITALS: BP 118/54
[2021-05-26] MEDS: SIMVASTATIN 10 MG TABLET PO SCH (21:13)
[2021-05-26] MEDS: QUETIAPINE FUMARATE 100 MG TABLET PO SCH (21:13)
[2021-05-26] MEDS ORDERED: INSULIN GLARGINE, 100 UNIT/ML CARTRIDGE SQ SCH ×2 (22:00)
[2021-05-27] MEDS: BLOOD SUGAR DIAGNOSTIC 1 EACH STRIP IN SCH ×4 (07:57→21:39)
[2021-05-27 08:00] VITALS: BP 119/69
[2021-05-27] MEDS: PIOGLITAZONE HCL 15 MG TABLET PO SCH (08:42)
[2021-05-27] MEDS: LOSARTAN POTASSIUM 50 MG TABLET PO SCH (08:42)
[2021-05-27] MEDS: METOPROLOL SUCCINATE 50 MG TAB.SR.24H PO SCH (08:42)
[2021-05-27] MEDS: INSULIN REGULAR, HUMAN 100 UNIT/ML 3 ML VIAL SQ PRN (11:52)
[2021-05-27 18:28] VITALS: BP 98/67
[2021-05-27 21:00] VITALS: BP 144/68
[2021-05-27] MEDS: QUETIAPINE FUMARATE 100 MG TABLET PO SCH (21:30)
[2021-05-27] MEDS: SIMVASTATIN 10 MG TABLET PO SCH (21:30)
--- NOTE | 2021-05-27 21:55 | NUR ---
RN NOTE: REFUSED SSI PATIENT'S BLOOD GLUCOSE LEVEL IS 314 MG/DL. PATIENT REFUSED TO TAKE SSI PER PROTOCOL DESPITE OF RISKS AND BENEFITS EXPLANATIONS BUT AGREED TO TAKE LANTUS ONLY AT THIS TIME. LANTUS 17 UNITS SQ ADMINISTERED ORDERED. PATIENT HAD PLENTY OF SNACKS. A & O X 3, ABLE TO MAKE NEEDS KNOWN. WILL CONTINUE TO MONITOR THE PATIENT FOR ANY CHANGE OF CONDITION.
[2021-05-27] MEDS ORDERED: INSULIN GLARGINE, 100 UNIT/ML CARTRIDGE SQ SCH (22:00)
[2021-05-28] MEDS: BLOOD SUGAR DIAGNOSTIC 1 EACH STRIP IN SCH ×4 (07:38→21:17)
[2021-05-28] MEDS: INSULIN REGULAR, HUMAN 100 UNIT/ML 3 ML VIAL SQ PRN ×4 (07:41→21:28)
[2021-05-28 08:00] VITALS: BP 150/77
[2021-05-28] MEDS: QUETIAPINE FUMARATE 25 MG TABLET PO SCH ×2 (08:08→17:08)
[2021-05-28] MEDS: PIOGLITAZONE HCL 15 MG TABLET PO SCH (08:09)
[2021-05-28] MEDS: LOSARTAN POTASSIUM 50 MG TABLET PO SCH (08:09)
[2021-05-28] MEDS: METOPROLOL SUCCINATE 50 MG TAB.SR.24H PO SCH (08:09)
[2021-05-28 16:00] VITALS: BP 140/66
[2021-05-28] MEDS: INSULIN GLARGINE, 100 UNIT/ML CARTRIDGE SQ SCH (21:37)
[2021-05-28] MEDS: SIMVASTATIN 10 MG TABLET PO SCH (22:05)
[2021-05-28] MEDS: QUETIAPINE FUMARATE 100 MG TABLET PO SCH (22:06)
[2021-05-29] MEDS: BLOOD SUGAR DIAGNOSTIC 1 EACH STRIP IN SCH ×4 (07:40→22:10)
[2021-05-29 08:00] VITALS: BP 141/81
[2021-05-29] MEDS: INSULIN REGULAR, HUMAN 100 UNIT/ML 3 ML VIAL SQ PRN ×4 (08:01→22:12)
[2021-05-29] MEDS: METOPROLOL SUCCINATE 50 MG TAB.SR.24H PO SCH (08:05)
[2021-05-29] MEDS: LOSARTAN POTASSIUM 50 MG TABLET PO SCH (08:06)
[2021-05-29] MEDS: QUETIAPINE FUMARATE 25 MG TABLET PO SCH ×2 (08:06→16:50)
[2021-05-29] MEDS: PIOGLITAZONE HCL 15 MG TABLET PO SCH (08:06)
--- NOTE | 2021-05-29 08:24 | NUR ---
SNF Contact: SW spoke with Bashir ([phone]) who stated that pt is accepted at [facility].
[2021-05-29 16:00] VITALS: BP 125/65
[2021-05-29 20:00] VITALS: BP 135/79
[2021-05-29] MEDS: SIMVASTATIN 10 MG TABLET PO SCH (21:47)
[2021-05-29] MEDS: QUETIAPINE FUMARATE 100 MG TABLET PO SCH (21:47)
[2021-05-29] MEDS: INSULIN GLARGINE, 100 UNIT/ML CARTRIDGE SQ SCH (22:13)
[2021-05-30] MEDS: BLOOD SUGAR DIAGNOSTIC 1 EACH STRIP IN SCH ×4 (07:39→21:44)
[2021-05-30] MEDS: INSULIN REGULAR, HUMAN 100 UNIT/ML 3 ML VIAL SQ PRN ×4 (07:42→21:59)
[2021-05-30 08:00] VITALS: BP 138/72
[2021-05-30] MEDS: QUETIAPINE FUMARATE 25 MG TABLET PO SCH ×2 (08:35→17:07)
[2021-05-30] MEDS: PIOGLITAZONE HCL 15 MG TABLET PO SCH (08:35)
[2021-05-30] MEDS: METOPROLOL SUCCINATE 50 MG TAB.SR.24H PO SCH (08:35)
[2021-05-30] MEDS: LOSARTAN POTASSIUM 50 MG TABLET PO SCH (08:36)
--- NOTE | 2021-05-30 11:30 | NUR ---
AMRITA Note: Patient requested Teresa CARABALLO <[email or web address]> from [employer] [facility] to send documents to waive her eviction. Teresa send documents that has been reviewed by pt and has been signed electronically. SW placed copies in the chart of the copy of the waiver and the submission. AMRITA also send in patient's compliant through email and scanned it. AMRITA made copies of this and placed in chart.
[2021-05-30 16:00] VITALS: BP 131/65
[2021-05-30] MEDS: SIMVASTATIN 10 MG TABLET PO SCH (21:44)
[2021-05-30] MEDS: QUETIAPINE FUMARATE 100 MG TABLET PO SCH (21:44)
[2021-05-30] MEDS: INSULIN GLARGINE, 100 UNIT/ML CARTRIDGE SQ SCH (21:59)
[2021-05-31] MEDS: BLOOD SUGAR DIAGNOSTIC 1 EACH STRIP IN SCH ×2 (07:33→11:18)
[2021-05-31 08:00] VITALS: BP 113/70
[2021-05-31] MEDS: INSULIN REGULAR, HUMAN 100 UNIT/ML 3 ML VIAL SQ PRN ×3 (08:16→16:43)
[2021-05-31] MEDS: PIOGLITAZONE HCL 15 MG TABLET PO SCH (10:07)
[2021-05-31] MEDS: METOPROLOL SUCCINATE 50 MG TAB.SR.24H PO SCH (10:07)
[2021-05-31] MEDS: LOSARTAN POTASSIUM 50 MG TABLET PO SCH (10:07)
[2021-05-31] MEDS: QUETIAPINE FUMARATE 25 MG TABLET PO SCH ×2 (10:08→17:25)
--- NOTE | 2021-05-31 10:33 | NUR ---
[facility]: SW contacted patient's case managers Vivian ([phone]) and notified that pt is accepted at [facility].
--- NOTE | 2021-05-31 10:49 | NUR ---
AMRITA Family Contact: AMRITA contacted patient's daughter Dolores ([phone]) and notified that pt is accepted at [facility] and she was agreeable with this plan.
[2021-05-31] MEDS ORDERED: DEXTROSE 50%-WATER 50 ML DISP.SYRIN IV PRN (14:00)
[2021-05-31 16:00] VITALS: BP 121/74
[2021-05-31] MEDS: BLOOD SUGAR DIAGNOSTIC 1 EACH STRIP VI SCH ×2 (16:43→21:31)
--- NOTE | 2021-05-31 17:26 | NUR ---
RN-CO: PT REFUSED REGULAR INSULIN.
[2021-05-31 20:00] VITALS: BP 121/90
[2021-05-31] MEDS: SIMVASTATIN 10 MG TABLET PO SCH (21:30)
[2021-05-31] MEDS: QUETIAPINE FUMARATE 100 MG TABLET PO SCH (21:30)
[2021-05-31] MEDS: INSULIN GLARGINE, 100 UNIT/ML CARTRIDGE SQ SCH (21:53)
[2021-05-31] MEDS: *INSULIN REGULAR(HUMULIN R)HUM 100 UNIT/ML VIAL SQ PRN (21:54)
--- NOTE | 2021-06-01 00:30 | NUR ---
GPS-RN NOTES: INSOMNIA PATIENT C/O INABILITY TO SLEEP. PRN RESTORIL 15MG PO GIVEN ORDERED PER PT'S REQUEST. WILL CONTINUE TO MONITOR.
[2021-06-01] MEDS: BLOOD SUGAR DIAGNOSTIC 1 EACH STRIP VI SCH ×4 (07:52→21:36)
[2021-06-01 08:00] VITALS: BP 137/88
[2021-06-01] MEDS: METOPROLOL SUCCINATE 50 MG TAB.SR.24H PO SCH (08:39)
[2021-06-01] MEDS: LOSARTAN POTASSIUM 50 MG TABLET PO SCH (08:40)
[2021-06-01] MEDS: QUETIAPINE FUMARATE 25 MG TABLET PO SCH ×2 (08:40→17:16)
[2021-06-01] MEDS: PIOGLITAZONE HCL 15 MG TABLET PO SCH (08:40)
[2021-06-01 16:00] VITALS: BP 126/59
[2021-06-01] MEDS: INSULIN REGULAR, HUMAN 100 UNIT/ML 3 ML VIAL SQ PRN (17:20)
[2021-06-01 20:25] VITALS: BP 115/83
[2021-06-01] MEDS: SIMVASTATIN 10 MG TABLET PO SCH (21:22)
[2021-06-01] MEDS: QUETIAPINE FUMARATE 100 MG TABLET PO SCH (21:22)
[2021-06-01] MEDS: INSULIN GLARGINE, 100 UNIT/ML CARTRIDGE SQ SCH (22:33)
[2021-06-01] MEDS: *INSULIN REGULAR(HUMULIN R)HUM 100 UNIT/ML VIAL SQ PRN (22:36)
[2021-06-02 08:00] VITALS: BP 123/71
[2021-06-02] MEDS: BLOOD SUGAR DIAGNOSTIC 1 EACH STRIP VI SCH ×4 (08:08→21:33)
[2021-06-02] MEDS: INSULIN REGULAR, HUMAN 100 UNIT/ML 3 ML VIAL SQ PRN ×2 (08:16→17:45)
[2021-06-02] MEDS: PIOGLITAZONE HCL 15 MG TABLET PO SCH (08:22)
[2021-06-02] MEDS: LOSARTAN POTASSIUM 50 MG TABLET PO SCH (08:23)
[2021-06-02] MEDS: METOPROLOL SUCCINATE 50 MG TAB.SR.24H PO SCH (08:23)
[2021-06-02] MEDS: QUETIAPINE FUMARATE 25 MG TABLET PO SCH ×3 (08:23→16:19)
[2021-06-02] MEDS: *INSULIN REGULAR(HUMULIN R)HUM 100 UNIT/ML VIAL SQ PRN ×2 (14:28→21:47)
[2021-06-02 16:00] VITALS: BP 114/64
[2021-06-02 20:10] VITALS: BP 116/61
[2021-06-02] MEDS: SIMVASTATIN 10 MG TABLET PO SCH (21:30)
[2021-06-02] MEDS: QUETIAPINE FUMARATE 100 MG TABLET PO SCH (21:31)
[2021-06-02] MEDS: INSULIN GLARGINE, 100 UNIT/ML CARTRIDGE SQ SCH (22:00)
--- NOTE | 2021-06-02 22:11 | NUR ---
RN NOTE: REFUSED LANTUS INSULIN PATIENT'S BLOOD SUGAR LEVEL IS 194 MG/DL, PATIENT AGREED TO HAVE SSI, SSI 3 UNITS HAS BEEN ADMINISTERED PER PROTOCOL BUT PATIENT REFUSED TO TAKE LANTUS INSULIN SCHEDULED, STATED," IT'S TOO MUCH INSULIN, MY BLOOD SUGAR IS NOT TOO HIGH, I ONLY WANT TO TAKE REGULAR INSULIN 3 UNITS, NOT LANTUS." PATIENT HAD SNACK AND TOLERATED WELL. WILL CONTINUE TO MONITOR FOR ANY CHANGE OF CONDITION.
[2021-06-03] MEDS: BLOOD SUGAR DIAGNOSTIC 1 EACH STRIP VI SCH ×4 (07:47→21:16)
[2021-06-03] MEDS: INSULIN REGULAR, HUMAN 100 UNIT/ML 3 ML VIAL SQ PRN ×2 (07:53→16:46)
[2021-06-03 08:00] VITALS: BP 130/73
[2021-06-03] MEDS: LOSARTAN POTASSIUM 50 MG TABLET PO SCH (08:02)
[2021-06-03] MEDS: METOPROLOL SUCCINATE 50 MG TAB.SR.24H PO SCH (08:02)
[2021-06-03] MEDS: QUETIAPINE FUMARATE 25 MG TABLET PO SCH ×3 (08:12→16:26)
[2021-06-03] MEDS: PIOGLITAZONE HCL 15 MG TABLET PO SCH (08:12)
[2021-06-03 16:00] VITALS: BP 123/59
[2021-06-03 20:00] VITALS: BP 143/68
[2021-06-03] MEDS: QUETIAPINE FUMARATE 100 MG TABLET PO SCH (21:05)
[2021-06-03] MEDS: SIMVASTATIN 10 MG TABLET PO SCH (21:12)
[2021-06-03] MEDS: INSULIN GLARGINE, 100 UNIT/ML CARTRIDGE SQ SCH (21:18)
[2021-06-03] MEDS: *INSULIN REGULAR(HUMULIN R)HUM 100 UNIT/ML VIAL SQ PRN (21:19)
--- NOTE | 2021-06-04 07:51 | NUR ---
AMRITA Discharge Note: Patient will be discharged to [facility] facility [facility] located at [address] [place] [address]; ([phone]). Please arrange ambulance at 1PM. Photovoltaic Technician spoke with Melanie/Hailey Sand Shoveler ([phone]) who stated patient will be accepted at facility today. Patient is alert and oriented x3 and is not able to plan for self-care at this time but is willing to accept care provided by the facility. Patient denies any suicidal or homicidal ideations. Patient is aware and agreeable with discharge plans. Patients daughter Dolores ([phone]) is aware of discharge. Patient will continue to follow-up with (psychiatrist) Dr. Manrique located at [address] [facility] [address] [address]; ([phone]) and (Collision Repair Technician) Dr. Rahman [address] [facility] [address] [address]; ([phone]). SW contacted patient's caser up Vivian ([phone]) and notified of patients dc. SNF.Patient presents with euthymic mood and congruent affect.
[2021-06-04] MEDS: BLOOD SUGAR DIAGNOSTIC 1 EACH STRIP VI SCH ×2 (07:59→11:54)
[2021-06-04 08:00] VITALS: BP 128/70
[2021-06-04] MEDS: INSULIN REGULAR, HUMAN 100 UNIT/ML 3 ML VIAL SQ PRN ×2 (08:01→11:55)
[2021-06-04] MEDS: PIOGLITAZONE HCL 15 MG TABLET PO SCH (08:49)
[2021-06-04] MEDS: QUETIAPINE FUMARATE 25 MG TABLET PO SCH ×2 (08:49→13:08)
[2021-06-04 08:50] VITALS: BP 128/70
[2021-06-04] MEDS: METOPROLOL SUCCINATE 50 MG TAB.SR.24H PO SCH (08:50)
[2021-06-04] MEDS: LOSARTAN POTASSIUM 50 MG TABLET PO SCH (08:50)
--- NOTE | 2021-06-04 11:56 | NUR ---
PT'S ACCU CHECK READS 132 REQUIRING 2 UNITS OF INSULIN. PT REFUSES INSULIN AT THIS TIME.
--- NOTE | 2021-06-04 14:20 | NUR ---
[facility] leaving the GPS unit at 1420PM. Patient is alert and oriented x3 and is not able to plan for self-care at this time but is willing to accept care provided by the facility. Patient denies any suicidal or homicidal ideations Patient denies auditory and visual hallucinations. Patient is aware and agreeable with discharge plans. Patients daughter Dolores ([phone]) is aware of discharge. Patient will continue to follow-up with (psychiatrist) Dr. Manrique located at [address] [facility] [address] [address]; ([phone]) and (Ophthalmologist) Dr. Rahman [address] [facility] [address] [address]; ([phone]). Exit Care and discharge documents signed and education forms provided. Medication reconciliation for psychiatric and medical provided in DC packet. All belongings and pt's own medications returned and signed. pt refused discharge pictures. Charge nurse aware. report called and spoke with Melanie ELMORE
== END 2021-06-04 14:20 | DRG 885 ==
LOC: GPS 00:46
PROVIDERS: ADMIT Psychiatry & Neurology Psychiatry; ATTEND Nurse Practitioner Acute Care
DX: F29 Unspecified psychosis not due to a substance or known physiological condition (principal); E11.65 Type 2 diabetes mellitus with hyperglycemia; F41.9 Anxiety disorder, unspecified; Z73.6 Limitation of activities due to disability; F25.9 Schizoaffective disorder, unspecified; I10 Essential (primary) hypertension; E66.9 Obesity, unspecified; Z68.27 Body mass index [BMI] 27.0-27.9, adult; Z79.899 Other long term (current) drug therapy; R79.89 Other specified abnormal findings of blood chemistry
CPT/HCPCS: 36415; 80053-TC; 80061-TC; 82962-TC; 85025-TC; 87081-TC; J1815; Q0163

== ENCOUNTER 2021-11-15 19:10 | Inpatient (IN) | payer MEDICARE, OTHER ==
[~2021-11-15] VITALS: Ht 175.3 cm; Wt 89.4 kg
[~2021-11-15 19:10] MED LIST changes: +CLOT15CR5 TP; +DULA1.5P SQ; +GLIP5TAB13 PO; +METF-442 PO; +QUET200T PO
[2021-11-15] MEDS ORDERED: LOSA25TA27 PO (23:41)
[2021-11-15] MEDS ORDERED: LURA40TA PO (23:43)
[2021-11-15] MEDS ORDERED: IPRA21SP (23:53)
[2021-11-15] MEDS ORDERED: INSU100V7 SQ (23:55)
[2021-11-16] MEDS ORDERED: TEMAZEPAM 7.5 MG CAPSULE PO PRN
[2021-11-16] MEDS ORDERED: MAG HYDROX/AL HYDROX/SIMETH 30 ML UDC PO PRN
[2021-11-16] MEDS ORDERED: BLOOD SUGAR DIAGNOSTIC 1 EACH STRIP IN ONE
[2021-11-16] MEDS ORDERED: ACETAMINOPHEN 325 MG TABLET PO PRN
[2021-11-16] MEDS ORDERED: LORAZEPAM 0.5 MG TABLET PO PRN
[2021-11-16] MEDS ORDERED: MAGNESIUM HYDROXIDE 30 ML UDC PO PRN
[2021-11-16 00:15] VITALS: BP 129/78
[2021-11-16] MEDS ORDERED: CLOTRIMAZOLE/BETAMETASONE DIPROPIONATE 15 GM TUBE TP SCH (00:30)
[2021-11-16] MEDS ORDERED: IPRATROPIUM BROMIDE 0.03 % 30 ML NASPR NS PRN (00:30)
[2021-11-16 07:40] LABS: BASOPHILS # (AUTO) 0.1 K/uL (0.0-0.2); BASOPHILS % (AUTO) 0.9 % (0.0-2.0); EOSINOPHILS % (AUTO) 2.9 % (0.0-6.0); HEMATOCRIT 40 % (33-45); LYMPHOCYTES # (AUTO) 1.9 K/uL (0.8-4.8); LYMPHOCYTES % (AUTO) 22.1 % (20.0-44.0); MEAN CORPUSCULAR HGB CONC 33 g/dl (31.0-36.0); MEAN CORPUSCULAR VOLUME 84 fL (82-100); MONOCYTES # (AUTO) 0.8 K/uL (0.1-1.30); MONOCYTES % (AUTO) 9.1 % (2.0-12.0); NEUTROPHILS # (AUTO) 5.7 K/uL (1.8-8.9); PLATELET COUNT (AUTO) 296 K/uL (150-450); RED BLOOD CELL COUNT(AUTO) 4.74 MIL/uL (4.0-5.2); WHITE BLOOD COUNT (AUTO) 8.7 K/uL (4.3-11.0)
[2021-11-16 07:52] LABS: ALBUMIN 3.2 g/dL (3.4-5.0); BILIRUBIN,TOTAL 0.2 mg/dL (0.2-1.0); CALCIUM, SERUM 8.9 mg/dL (8.5-10.1); CREATININE 0.8 mg/dL (0.6-1.3); POTASSIUM 4.2 mmol/L (3.5-5.1); TOTAL PROTEIN, SERUM 7.3 g/dL (6.4-8.2)
[2021-11-16 08:00] VITALS: BP 150/70
[2021-11-16] MEDS: LOSARTAN POTASSIUM 25 MG TABLET PO SCH ×2 (08:21→16:57)
[2021-11-16] MEDS: METOPROLOL SUCCINATE 50 MG TAB.SR.24H PO SCH (08:21)
[2021-11-16] MEDS: LINAGLIPTIN 5 MG TABLET PO SCH (08:21)
[2021-11-16] MEDS: glipiZIDE 5 MG TABLET PO SCH ×2 (08:21→16:56)
[2021-11-16] MEDS: METFORMIN 500 MG TABLET PO SCH ×2 (08:21→16:57)
[2021-11-16] MEDS: INSULIN GLARGINE, 100 UNIT/ML CARTRIDGE SQ SCH (08:31)
[2021-11-16] MEDS ORDERED: DEXTROSE 50%-WATER 50 ML DISP.SYRIN IV PRN (12:00)
[2021-11-16] MEDS: INSULIN REGULAR, HUMAN 100 UNIT/ML 3 ML VIAL SQ PRN ×2 (12:11→16:55)
[2021-11-16] MEDS: BLOOD SUGAR DIAGNOSTIC 1 EACH STRIP VI SCH ×3 (12:11→21:54)
[2021-11-16 16:00] VITALS: BP 144/70
[2021-11-16 20:21] VITALS: BP 150/77
[2021-11-16] MEDS: SIMVASTATIN 10 MG TABLET PO SCH (21:15)
[2021-11-16] MEDS: QUETIAPINE FUMARATE 100 MG TABLET PO SCH (21:15)
[2021-11-16] MEDS: *INSULIN REGULAR(HUMULIN R)HUM 100 UNIT/ML VIAL SQ PRN (21:54)
[2021-11-16] MEDS ORDERED: QUETIAPINE FUMARATE 100 MG TABLET PO SCH (22:00)
[2021-11-17] MEDS: BLOOD SUGAR DIAGNOSTIC 1 EACH STRIP VI SCH ×4 (07:59→22:03)
[2021-11-17] MEDS: INSULIN GLARGINE, 100 UNIT/ML CARTRIDGE SQ SCH (07:59)
[2021-11-17 08:00] VITALS: BP 127/79
[2021-11-17] MEDS: glipiZIDE 5 MG TABLET PO SCH ×3 (08:15→17:00)
[2021-11-17] MEDS: LOSARTAN POTASSIUM 25 MG TABLET PO SCH ×2 (08:16→18:26)
[2021-11-17] MEDS: METFORMIN 500 MG TABLET PO SCH ×2 (08:16→18:26)
[2021-11-17] MEDS: LINAGLIPTIN 5 MG TABLET PO SCH ×2 (08:16→08:22)
[2021-11-17] MEDS: METOPROLOL SUCCINATE 50 MG TAB.SR.24H PO SCH (08:17)
[2021-11-17 16:00] VITALS: BP 123/69
[2021-11-17 20:03] VITALS: BP 126/69
[2021-11-17] MEDS: SIMVASTATIN 10 MG TABLET PO SCH (21:12)
[2021-11-17] MEDS: QUETIAPINE FUMARATE 100 MG TABLET PO SCH (21:13)
[2021-11-17] MEDS: *INSULIN REGULAR(HUMULIN R)HUM 100 UNIT/ML VIAL SQ PRN (22:04)
[2021-11-18] MEDS: BLOOD SUGAR DIAGNOSTIC 1 EACH STRIP VI SCH ×4 (07:30→23:03)
[2021-11-18 08:00] VITALS: BP 141/68
[2021-11-18] MEDS: METFORMIN 500 MG TABLET PO SCH ×2 (08:58→16:59)
[2021-11-18] MEDS: glipiZIDE 5 MG TABLET PO SCH ×2 (08:58→16:59)
[2021-11-18] MEDS: LINAGLIPTIN 5 MG TABLET PO SCH (08:58)
[2021-11-18] MEDS: METOPROLOL SUCCINATE 50 MG TAB.SR.24H PO SCH (08:59)
[2021-11-18] MEDS: LOSARTAN POTASSIUM 25 MG TABLET PO SCH ×2 (08:59→16:59)
[2021-11-18] MEDS: INSULIN GLARGINE, 100 UNIT/ML CARTRIDGE SQ SCH (08:59)
[2021-11-18 16:00] VITALS: BP 152/85
[2021-11-18] MEDS: SIMVASTATIN 10 MG TABLET PO SCH (21:39)
[2021-11-18] MEDS: QUETIAPINE FUMARATE 100 MG TABLET PO SCH (21:39)
[2021-11-19] MEDS: BLOOD SUGAR DIAGNOSTIC 1 EACH STRIP VI SCH ×4 (07:30→22:44)
[2021-11-19 08:00] VITALS: BP 134/83
[2021-11-19] MEDS: INSULIN REGULAR, HUMAN 100 UNIT/ML 3 ML VIAL SQ PRN (08:07)
[2021-11-19] MEDS: INSULIN GLARGINE, 100 UNIT/ML CARTRIDGE SQ SCH (09:00)
[2021-11-19] MEDS: LOSARTAN POTASSIUM 25 MG TABLET PO SCH ×2 (09:24→17:45)
[2021-11-19] MEDS: METFORMIN 500 MG TABLET PO SCH ×2 (09:25→17:44)
[2021-11-19] MEDS: glipiZIDE 5 MG TABLET PO SCH ×2 (09:25→17:44)
[2021-11-19] MEDS: METOPROLOL SUCCINATE 50 MG TAB.SR.24H PO SCH (09:25)
[2021-11-19] MEDS: LINAGLIPTIN 5 MG TABLET PO SCH (09:25)
[2021-11-19 16:00] VITALS: BP 126/60
[2021-11-19 20:00] VITALS: BP 152/78
[2021-11-19] MEDS: SIMVASTATIN 10 MG TABLET PO SCH (22:38)
[2021-11-19] MEDS: QUETIAPINE FUMARATE 100 MG TABLET PO SCH (22:38)
[2021-11-20] MEDS: BLOOD SUGAR DIAGNOSTIC 1 EACH STRIP VI SCH ×4 (07:30→21:59)
[2021-11-20 08:00] VITALS: BP 160/87
[2021-11-20] MEDS: LINAGLIPTIN 5 MG TABLET PO SCH (08:46)
[2021-11-20] MEDS: glipiZIDE 5 MG TABLET PO SCH ×2 (08:46→16:25)
[2021-11-20] MEDS: METOPROLOL SUCCINATE 50 MG TAB.SR.24H PO SCH (08:46)
[2021-11-20] MEDS: METFORMIN 500 MG TABLET PO SCH ×2 (08:46→16:25)
[2021-11-20] MEDS: LOSARTAN POTASSIUM 25 MG TABLET PO SCH ×2 (08:47→16:38)
[2021-11-20] MEDS: INSULIN GLARGINE, 100 UNIT/ML CARTRIDGE SQ SCH (08:47)
[2021-11-20 16:10] VITALS: BP 147/81
[2021-11-20] MEDS: *INSULIN REGULAR(HUMULIN R)HUM 100 UNIT/ML VIAL SQ PRN (16:39)
[2021-11-20 20:18] VITALS: BP 142/74
[2021-11-20] MEDS: QUETIAPINE FUMARATE 100 MG TABLET PO SCH (21:53)
[2021-11-20] MEDS: SIMVASTATIN 10 MG TABLET PO SCH (21:53)
[2021-11-21] MEDS: BLOOD SUGAR DIAGNOSTIC 1 EACH STRIP VI SCH ×2 (07:39→12:23)
[2021-11-21 08:00] VITALS: BP 153/88
[2021-11-21] MEDS: INSULIN GLARGINE, 100 UNIT/ML CARTRIDGE SQ SCH (09:00)
[2021-11-21] MEDS: METFORMIN 500 MG TABLET PO SCH (09:12)
[2021-11-21] MEDS: LINAGLIPTIN 5 MG TABLET PO SCH (09:12)
[2021-11-21] MEDS: glipiZIDE 5 MG TABLET PO SCH (09:12)
[2021-11-21 09:13] VITALS: BP 153/88
[2021-11-21] MEDS: METOPROLOL SUCCINATE 50 MG TAB.SR.24H PO SCH (09:13)
[2021-11-21] MEDS: LOSARTAN POTASSIUM 25 MG TABLET PO SCH (09:13)
== END 2021-11-21 13:45 | DRG 885 ==
LOC: GPS 22:43
PROVIDERS: ADMIT Psychiatry & Neurology Psychosomatic Medicine
DX: F25.0 Schizoaffective disorder, bipolar type (principal); E11.65 Type 2 diabetes mellitus with hyperglycemia; E44.1 Mild protein-calorie malnutrition; F29 Unspecified psychosis not due to a substance or known physiological condition; I10 Essential (primary) hypertension; F41.9 Anxiety disorder, unspecified; E78.1 Pure hyperglyceridemia; R32 Unspecified urinary incontinence; Z53.20 Procedure and treatment not carried out because of patient's decision for unspecified reasons; G31.84 Mild cognitive impairment of uncertain or unknown etiology
CPT/HCPCS: 36415; 80053-TC; 80061-TC; 82962-TC; 85025-TC; 87081-TC; 97116-TC; 97530-TC; J1815